=== PATIENT | female | born 1995 | race Caucasian/White ===

== ENCOUNTER 2022-12-23 16:32 | Observation (INO) ==
[2022-12-23 18:01] LABS: Creatinine Urine Random 13.7 mg/dl; Protein Creatinine Ratio Urine 0.7 (0-0.2); Total Protein Urine Random 9.9 mg/dl (0-11.9)
[2022-12-23 18:08] LABS: Basophils # (auto) 0.03 K/uL (0-0.2); Basophils % (auto) 0.3 %; Eosinophils # (auto) 0.28 K/uL (0-0.50); Eosinophils % (auto) 2.9 %; Hematocrit (blood only) 34.9 % (37.0-47.0); Hemoglobin 11.4 g/dl (12.0-16.0); Immature Granulocytes # (auto) 0.03 K/uL (0.01-0.20); Immature Granulocytes % (auto) 0.3 %; Lymphocytes # (auto) 1.84 K/uL (1.2-3.4); Lymphocytes % (auto) 19.3 %; Mean Corpuscular Hemoglobin 27.4 pg (25.0-34.0); Mean Corpuscular Hgb Conc 32.7 g/dL (32.0-36.0); Mean Corpuscular Volume 83.9 fL (80.0-100.0); Mean Platelet Volume 10.3 fL (9.4-12.4); Monocytes # (auto) 0.63 K/uL (0.11-0.59); Monocytes % (auto) 6.6 %; Neutrophils # (auto) 6.73 K/uL (1.40-6.50); Neutrophils % (auto) 70.6 %; Platelet Count 168 K/uL (130-400); RDW Coefficient of Variation 16.7 % (11.5-14.5); RDW Standard Deviation 50.9 fL (36.4-46.3); Red Blood Count 4.16 M/uL (4.20-5.40); White Blood Count 9.54 K/ul (4.8-10.8)
[2022-12-23 18:32] LABS: Albumin Globulin Ratio 1.1 (0.9-2); Albumin Level 3.2 gm/dl (3.4-5.0); BUN Creatinine Ratio 12.1 (10-20); Bilirubin,Total 0.2 mg/dl (0.2-1.0); Calcium 9.1 mg/dl (8.6-10.3); Creatinine Clr Calc Pharmacy 167.8 ml/min; Est GFR (African American) 147.4 ml/min; Est GFR (Non-African American) 127.2 ml/min; Potassium 3.8 mmol/L (3.5-5.1); Total Protein 6.2 gm/dl (6.0-8.3)
[2022-12-23] MEDS ORDERED: OXYTOCIN 30 UNITS/500 ML BAG IV PRN (18:51)
[2022-12-23] MEDS ORDERED: LIDOCAINE 1% LOCAL 20 ML VIAL INFIL PRN (18:51)
[2022-12-23] MEDS ORDERED: BETAMETH SOD PHOS/ACETATE IA 6 MG/ML IM STA (18:51)
[2022-12-23] MEDS ORDERED: ACETAMINOPHEN 500 MG TAB PO PRN (19:01)
[2022-12-23] MEDS ORDERED: ONDANSETRON INJ 2 MG/ML 2 ML VIAL IV PRN (19:01)
[2022-12-23] MEDS ORDERED: ONDANSETRON 4 MG OD TAB PO PRN (19:01)
--- NOTE | 2022-12-23 19:17 | Progress Note ---
Date of Service December 23, 2022 Assessment & Plan (1) Mild preeclampsia: Plan: 27yo at 32 weeks with elevated BP t home (140;s/102) Pt seen in office and sent to L&d for eval Denies headache, SOB, RUQ pain or scotomas PIH labs done- Nml except Pr/Cr is 0.7 CAT 1 Tracing Reviewed PMH. PSH, Meds, Allergies ,Fam Hx and Social Hx Plan Admit BMTX series Bedrest Continue to monitor BP - Will start antihypertensives if BP is in the severe range Growth scan ordered Hold off Mag. No severe features present Results & Data Vital Signs (Past 12 Hours) Vital Signs Temp Pulse Resp BP 12/23/22 18:42 73 12/23/22 18:42 151/107 H 12/23/22 18:35 67 12/23/22 18:35 143/101 H 12/23/22 17:42 68 12/23/22 17:42 145/96 H 12/23/22 17:32 70 12/23/22 17:32 139/93 12/23/22 17:22 74 12/23/22 17:22 146/92 H 12/23/22 17:20 68 12/23/22 17:20 156/95 H 12/23/22 17:02 70 12/23/22 17:02 158/99 H 12/23/22 16:48 20 12/23/22 16:48 36.8 C 20 12/23/22 16:43 74 166/110 H
[2022-12-23] MEDS: LACTATED RINGER'S 1,000 ML IV PRN (20:08)
[2022-12-23] MEDS: LABETALOL HCL 100 MG TAB PO SCH (21:48)
[2022-12-24] MEDS: LACTATED RINGER'S 1,000 ML IV PRN ×2 (04:21→12:08)
[2022-12-24 06:19] LABS: Hematocrit (blood only) 34.1 % (37.0-47.0); Hemoglobin 11.2 g/dl (12.0-16.0); Mean Corpuscular Hemoglobin 27.7 pg (25.0-34.0); Mean Corpuscular Hgb Conc 32.8 g/dL (32.0-36.0); Mean Corpuscular Volume 84.2 fL (80.0-100.0); Mean Platelet Volume 10.6 fL (9.4-12.4); Platelet Count 159 K/uL (130-400); RDW Coefficient of Variation 16.6 % (11.5-14.5); RDW Standard Deviation 50.5 fL (36.4-46.3); Red Blood Count 4.05 M/uL (4.20-5.40); White Blood Count 9.23 K/ul (4.8-10.8)
[2022-12-24 06:41] LABS: Alanine Aminotransferase 10 U/L (7-52); Albumin Globulin Ratio 1.1 (0.9-2); Albumin Level 3.1 gm/dl (3.4-5.0); Alkaline Phosphatase 68 U/L (34-104); Anion Gap 9 (3-11); Aspartate Aminotransferase 15 U/L (13-39); BUN Creatinine Ratio 13.2 (10-20); Bilirubin,Total 0.2 mg/dl (0.2-1.0); Blood Urea Nitrogen 7 mg/dl (6-23); Calcium 8.6 mg/dl (8.6-10.3); Carbon Dioxide 20 mmol/L (21-32); Chloride 107 mmol/L (98-107); Creatinine Clr Calc Pharmacy 183.6 ml/min; Est GFR (African American) > 150.0 ml/min; Globulin 2.9 gm/dl (2.5-4.0); Glucose 118 mg/dl (70-99(Fasting)); Potassium 4.1 mmol/L (3.5-5.1); Sodium 136 mmol/L (136-145)
[2022-12-24] MEDS: LABETALOL HCL 100 MG TAB PO SCH (08:44)
--- NOTE | 2022-12-24 08:53 | Ultrasound Report ---
US OB limited CLINICAL HISTORY: Mild preeclampsia at 32wks. pls do growth scan COMPARISON STUDY: None. FINDINGS: Real-time sonographic imaging of the fetus was performed with solar manufacturer's representative images submitt ed. A full anatomic survey was not performed. There is a single intrauterine gestation with a f etal heart rate of 132 BPM. Normal amniotic fluid index of 15.5 cm. Normal-appearing fundal/posterior placenta. No evidence for subchorionic hematoma. The decubitus ultrasound age of the fetus based on the biparietal diameter, head circumference, abdominal circumference, and femur length is approximate ly 31 weeks and 0 days +/- 2 weeks and 1 day. Estimated weight is 3 lbs. 7 oz. +/- 8 ounces. Th is equates to a 3.6 percentile. IMPRESSION: 1. heart rate is 132 BPM. 2. Normal posterior/fundal placenta. 3. Normal amniotic fluid index. 4. Estimated weight is approximately 3 pounds and 7 ounces +/- 8 ounces equating to the 3.6 per centile. ACT 112: Negative or not required by law. Electronically signed by: Enoch Rice M.D. 12/24/2022 8:51 AM
[2022-12-24] MEDS ORDERED: PRENATAL VITAMIN 1 TAB PO SCH (09:00)
[2022-12-24] MEDS ORDERED: ESCITALOPRAM OXALATE 10 MG TAB PO SCH ×2 (09:00)
--- NOTE | 2022-12-24 09:11 | Electrocardiogram Report ---
Test Reason : Blood Pressure : / mmHG Vent. Rate : 082 BPM Atrial Rate : 082 BPM P-R Int : 164 ms QRS Dur : 084 ms QT Int : 390 ms P-R-T Axes : 043 031 021 degrees QTc Int : 455 ms Sinus rhythm with frequent Premature ventricular complexes in a pattern of bigeminy Otherwise normal ECG No previous ECGs available Confirmed by Coy Pineda ([id number]) on 12/24/2022 9:11:01 AM Referred By: Slade Gomes Confirmed By:Coy Pineda
[2022-12-24] MEDS ORDERED: DINOPROSTONE 10 MG INSERT PV ONE (09:44)
--- NOTE | 2022-12-24 10:06 | Progress Note ---
Date of Service December 24, 2022 Assessment & Plan (1) Mild preeclampsia: Plan: steroids 24 hr urine collection Labetalol 100 bid f/u tomorrow in office Admission and Anticipated Discharge Date Admission Date: December 23, 2022 Subjective doing welldenies any headaches, visual changes GI symptoms. Physical Exam Constitutional: WD/WN, vitals as above Gastrointestinal (Abdomen): Inspection/Auscultation: abdomen normal to inspection abdomen soft and non-tender Musculoskeletal: Extremities: extremities normal to inspection 1+ edema. patient says that this is improving Skin: no rashes, warm and dry Neurologic: patellar DTR's 2+ bilat, sensation intact Psychiatric: A+Ox3, euthymic affect Results & Data Vital Signs (Past 12 Hours) Vital Signs Temp Pulse Resp BP Pulse Ox O2 Del Method 12/24/22 07:55 Room Air 12/24/22 07:21 36.5 C 86 16 131/90 96 Room Air 12/24/22 04:30 36.4 C L 82 18 126/74 96 Room Air 12/24/22 01:30 80 20 137/88 94 Room Air 12/24/22 00:53 36.7 C 68 20 124/72 Room Air Laboratory Results 12/23/22 12/23/22 12/23/22 17:55 17:55 Unknown WBC 9.54 RBC 4.16 L Hgb 11.4 L Hct 34.9 L MCV 83.9 MCH 27.4 MCHC 32.7 RDW Std Deviation 50.9 H RDW Coeff of Conrad 16.7 H Plt Count 168 MPV 10.3 Immature Gran % (Auto) 0.3 Neut % (Auto) 70.6 Lymph % (Auto) 19.3 Bell % (Auto) 6.6 Eos % (Auto) 2.9 Baso % (Auto) 0.3 Neut # (Auto) 6.73 H Lymph # (Auto) 1.84 Bell # (Auto) 0.63 H Eos # (Auto) 0.28 Baso # (Auto) 0.03 Immature Gran # (Auto) 0.03 Sodium 136 Potassium 3.8 Chloride 107 Carbon Dioxide 23 Anion Gap 6 BUN 7 Creatinine 0.58 L Est Cr Clr Drug Dosing 167.8 Est GFR ( Amer) 147.4 Est GFR (Non-Af Amer) 127.2 BUN/Creatinine Ratio 12.1 Glucose 80 Calcium 9.1 Total Bilirubin 0.2 AST 13 ALT 9 Alkaline Phosphatase 71 Total Protein 6.2 Albumin 3.2 L Globulin 3.0 Albumin/Globulin Ratio 1.1 Ur Random Creatinine 13.7 U Random Total Protein 9.9 Protein/Creatinin Ratio 0.7 H SARS-CoV-2, RNA, NAAT 12/23/22 12/24/22 12/24/22 Unknown 05:48 05:48 WBC 9.23 RBC 4.05 L Hgb 11.2 L Hct 34.1 L MCV 84.2 MCH 27.7 MCHC 32.8 RDW Std Deviation 50.5 H RDW Coeff of Conrad 16.6 H Plt Count 159 MPV 10.6 Immature Gran % (Auto) Neut % (Auto) Lymph % (Auto) Bell % (Auto) Eos % (Auto) Baso % (Auto) Neut # (Auto) Lymph # (Auto) Bell # (Auto) Eos # (Auto) Baso # (Auto) Immature Gran # (Auto) Sodium 136 Potassium 4.1 Chloride 107 Carbon Dioxide 20 L Anion Gap 9 BUN 7 Creatinine 0.53 L Est Cr Clr Drug Dosing 183.6 Est GFR ( Amer) > 150.0 Est GFR (Non-Af Amer) 131.0 BUN/Creatinine Ratio 13.2 Glucose 118 H Calcium 8.6 Total Bilirubin 0.2 AST 15 ALT 10 Alkaline Phosphatase 68 Total Protein 6.0 Albumin 3.1 L Globulin 2.9 Albumin/Globulin Ratio 1.1 Ur Random Creatinine U Random Total Protein Protein/Creatinin Ratio SARS-CoV-2, RNA, NAAT NEGATIVE Diagnostic Findings
[2022-12-24] MEDS ORDERED: FERROUS SULFATE 325 MG TAB PO SCH (10:15)
[2022-12-24] MEDS ORDERED: BETAMETH SOD PHOS/ACETATE IA 6 MG/ML IM SCH (19:00)
[2022-12-25 23:41] LABS: Total Protein 24 Hour Urine 1497.6 mg/24 Hr (0-149.1)
[2022-12-25 23:47] LABS: Urine Total Protein 41.6 mg/dl
--- NOTE | 2023-01-03 11:14 | Discharge Summary (DS) ---
DATE OF ADMISSION: 12/23/2022. DATE OF DISCHARGE: 12/24/2022. CHIEF COMPLAINT: 1. at 32 weeks. 2. Preeclampsia complicating . HISTORY OF PRESENT ILLNESS: This is a 27-year-old G1, P0 at 32 weeks with elevated blood pressure at home. She was seen in the office and sent to labor and delivery for evaluation. On evaluation on l abor and delivery, she was diagnosed with mild preeclampsia and admitted overnight. She received 2 d oses of betamethasone and was discharged home and scheduled for followup appointment with maternal [facility] as an outpatient. PAST MEDICAL HISTORY: History of anxiety disorder. PAST SURGICAL HISTORY: Dental procedures. SOCIAL HISTORY: The patient denies tobacco, drug or alcohol use. FAMILY HISTORY: Noncontributory. ALLERGIES: No known drug allergies. PHYSICAL EXAMINATION: VITAL SIGNS: On 12/24/2022 blood pressure was 145/91, pulse was 96, respirations 18, temperature 36. 0. HEART: S1 and S2, regular rhythm and rate. LUNGS: Clear to auscultation bilaterally. ABDOMEN: Gravid. EXTREMITIES: No cyanosis, clubbing or edema. CONDITION ON DISCHARGE: The patient was discharged home in stable condition on antihypertensives. OPERATIONS: 1. at 32 weeks. 2. Mild preeclampsia. We will follow up with maternal medicine as an outpatient. DISCHARGE DIAGNOSIS: Preeclampsia at 32 weeks' gestation. PLAN ON DISCHARGE: The patient is discharged home with instructions regarding activity, diet, and fo llowup appointment. Job ID: [id number]
== END 2022-12-24 20:43 | disposition home or self-care (01) | DRG 833 ==
LOC: OPB 16:32 → 4S1 16:33 → INTOOBSV 18:51 → 4E1 21:20